=== PATIENT | male | born 1975 | race Caucasian/White ===

== ENCOUNTER → 2017-12-14 | Emergency (ER) | payer OTHER ==
[~2017-12-14] VITALS: Ht 180.3 cm; Wt 90.7 kg
[~2017-12-14] MED LIST: AMOX1TAB12 PO; FLOVENT 110MCG7.9 GM IH; PROTONIX40 M1 PO; PROVENTIL3 ML/2.5 M IH; ZYNCOF 20-400120 ML PO
== END | disposition home or self-care (01) ==
LOC: ER 07:13
DX: J11.1 Influenza due to unidentified influenza virus with other respiratory manifestations (principal); B34.9 Viral infection, unspecified

== ENCOUNTER 2019-03-28 10:24 | Emergency (ER) | payer OTHER ==
[~2019-03-28] VITALS: Ht 180.3 cm; Wt 95.3 kg
[2019-03-28] MEDS ORDERED: ZANTAC150 M3 (10:33)
== END 2019-03-28 19:14 | disposition home or self-care (01) ==
LOC: ER 10:24
DX: K80.20 Calculus of gallbladder without cholecystitis without obstruction (principal)

== ENCOUNTER 2021-03-14 02:12 | Inpatient (IN) | payer OTHER ==
[~2021-03-14] VITALS: Ht 180.3 cm; Wt 97.5 kg
[~2021-03-14 02:12] MED LIST changes: +ZANTAC150 M3
--- NOTE | 2021-03-14 02:26 | NUR ---
PACIENTE ALERTA Y ORIENTADO POR AIDE. REFIERE DOLOR EN COSTADO DERECHO DESDE LAS 8PM DEL ALEXI DE ROBERT.REFIERE VOMITOS X 4 E INDICA DOLOR EN AREA ABDOMINAL. PACIENTE REFIERE HACEN 2 ANOS PRESENTO EL MISMO DOLOR Y TENIA LANDRY EN VESICULA Y MISMOS SINTOMAS.
[2021-03-14] MEDS ORDERED: PRILOSEC OTC20 MG (02:29)
[2021-03-14] MEDS ORDERED: PAXIL20 MG (02:30)
--- NOTE | 2021-03-14 03:29 | NUR ---
SE RECIBE PTE MASCULINO DE 45 YRS ALERTA CONCIENTE Y TRANQUILO ACOMPANADO DE FAMILAIR, PTE ES EVALUADO POR LA QUIEN ORDENA TRATAMIENTO LA CUAL SE EJECUA POR MS.SMALL . SE MAMTIENE BAJP
--- NOTE | 2021-03-14 07:43 | NUR ---
SE RECIBE PTE MASCULINO ALERTA Y ORIENTADO POR AIDE. EN CATHI CON BARANDAS ELEVADAS EN POSICION SEMI-FOLEY. PTE NO REFIERE DOLOR AL MOMENTO. SE OBSERVA PTE CON BUEN PATRON RESPIRATORIO. CANALIZACION PATENTE Y LEIF DE EDEMAS. RECIBIENDO TERAPIA IVFS 0.9NSS BAJANDO A 100 ML/HR. SE MANTIENE PTE BAJO OBSERVACION.
[2021-03-14] MEDS ORDERED: XOLAIR150 MG/1 M SUBCUTANEO (11:57)
[2021-03-14] MEDS ORDERED: CLONAZEPAM0.5 MG (13:39)
[2021-03-14] MEDS ORDERED: LOSARTAN POTASS50 MG (13:39)
[2021-03-18] MEDS ORDERED: CIPRO500 MG PO (12:04)
[2021-03-18] MEDS ORDERED: ULTRAM50 MG PO (12:04)
[2021-03-18] MEDS ORDERED: FLAGYL500MG PO (12:05)
== END 2021-03-18 13:20 | disposition home or self-care (01) | DRG 419 ==
LOC: ER 02:12 → MEDI 10:40 → SURH 03-16 16:09
PROVIDERS: Surgery; ADMIT Internal Medicine Geriatric Medicine; ATTEND Internal Medicine Geriatric Medicine
PROC: BF53200 Other Imaging of Gallbladder and Bile Ducts using Fluorescing Agent, Indocyanine Green Dye, Intraoperative (ICD-10-PCS; 2021-03-16)
PROC: 0FT44ZZ Resection of Gallbladder, Percutaneous Endoscopic Approach (ICD-10-PCS; principal; 2021-03-16 10:00)
DX: K80.00 Calculus of gallbladder with acute cholecystitis without obstruction (principal); K82.A1 Gangrene of gallbladder in cholecystitis; E87.8 Other disorders of electrolyte and fluid balance, not elsewhere classified